=== PATIENT | female | born 1975 ===

== ENCOUNTER 2016-08-02 09:40 | Emergency (ER) | payer BC ==
[~2016-08-02] VITALS: Ht 170.2 cm; Wt 80.0 kg
--- OUTSIDE RECORDS SUMMARY | 2016-08-02 09:45 | XMS REPORT | Summary of Care ---
Author Author [facility] Organization [facility] Address [address] [place] [address] Phone Care Team Providers Care Sanitation Lead Name Role Phone Waleska Hill M.D. Unavailable Unavailable Walseka Hill Unavailable Unavailable Unavailable Unavailable Functional Status Name Dates Details Functional status health issues are not documented Status: Name Dates Details Cognitive status health issues are not documented Status: Problems Name Dates Details Visit for screening (V82.9, Z13.9) Status: Active Migraine headache (346.90, G43.909) Status: Active Fatigue (780.79, R53.83) Status: Active Edema (782.3, R60.9) Status: Active Lumbar sprain, initial encounter (847.2, S33.5XXA) Status: Active Hypercholesterolemia (272.0, E78.00) Status: Active Hypokalemia (276.8, E87.6) Status: Active Acute frontal sinusitis (461.1, J01.10) Status: Active Allergic rhinitis (477.9, J30.9) Status: Active Dysmenorrhea (625.3, N94.6) Status: Active Irregular bleeding (626.4, N92.6) Status: Active Preop examination (V72.84, Z01.818) Status: Active Low back pain, episodic (724.2, M54.5) Status: Active Cyst, ovarian (620.2, N83.209) Status: Active Status post endometrial ablation (V45.89, Z98.890) Status: Active Wellness examination (V70.0, Z00.00) Status: Active Non smoker (V49.89, Z78.9) Status: Active Herpes zoster (053.9, B02.9) Status: Active Neuralgic pain (729.2, M79.2) Status: Active Abdominal pain, RLQ (right lower quadrant) (789.03, R10.31) Status: Active Fibrocystic breast disease (FCBD) (610.1, N60.19) Status: Active Medications Name Dates Details Multi-Vitamin TABS Refills: 0 Active Ibuprofen 200 MG Oral Capsule TAKE CAPSULE PRN Refills: 0 Hill M.D., Waleska Start 22-Sep-2011 Active Vitamin C 1000 MG Oral Tablet TAKE 1 TABLET DAILY. Refills: 0 Hill M.D., [place] Start 25-Jul-2015 Active Atorvastatin Calcium 10 MG Oral Tablet TAKE 1 TABLET DAILY. Quantity: 90 Refills: 3 Hill M.D., [place] Start 25-Jul-2015 Active Vitamin D 1000 UNIT Oral Tablet Refills: 0 Start 15-Aug-2015 Active Acetaminophen-Codeine #3 300-30 MG Oral Tablet TAKE 1 TABLET 3 TIMES DAILY NEEDED FOR PAIN. Refills: 0 Hill M.D., [place] Start 13-Apr-2016 Active Ibuprofen 800 MG Oral Tablet TAKE 1 TABLET EVERY 8 HOURS WITH FOOD NEEDED. Quantity: 30 Refills: 0 Hill M.D., [place] Start 13-Apr-2016 Active Gabapentin 300 MG Oral Capsule TAKE TWO CAPSULES BY MOUTH THREE TIMES A DAY Quantity: 180 Refills: 0 Hill M.D., [place] Start 13-Apr-2016 Active Allergies and Adverse Reactions Name Dates Details Bactrim TABS (Allergy) Reaction: Hives (Severe) Status: Active Levaquin TABS (Allergy) Reaction: Nausea Status: Active Past Medical History Name Dates Details History of abdominal pain (V13.89, Z87.898) Status: Resolved History of acute bronchitis (V12.69, Z87.09) Status: Resolved History of acute sinusitis (V12.69, Z87.09) Status: Resolved History of acute sinusitis (V12.69, Z87.09) Status: Resolved History of allergic rhinitis (V12.69, Z87.09) Status: Resolved History of breast lump (V13.89, Z87.898) Status: Resolved History of bronchitis (V12.69, Z87.09) Status: Resolved History of chest pain (V13.89, Z87.898) Status: Resolved History of Chills (780.64, R68.83) Status: Resolved History of chronic sinusitis (V12.69, Z87.09) Status: Resolved History of Cough (786.2, R05) Status: Resolved History of dizziness (V13.89, Z87.898) Status: Resolved History of Dysuria (788.1, R30.0) Status: Resolved History of Eye pain (379.91, H57.10) Status: Resolved History of fever (V13.89, Z87.898) Status: Resolved History of Flu vaccine need (V04.81, Z23) Status: Resolved History of head injury (V15.59, Z87.828) Status: Resolved History of Leg pain (729.5, M79.606) Status: Resolved History of Leukorrhea, vaginal, noninfectious (623.5, N89.8) Status: Resolved History of migraine headaches (V12.49, Z86.69) Status: Resolved History of Solitary thyroid nodule (241.0, E04.1) Status: Resolved History of Sore throat (462, J02.9) Status: Resolved History of syncope (V15.89, Z87.898) Status: Resolved History of vaginal discharge (V13.29, Z87.42) Status: Resolved Procedures Procedure Dates Details History of Sinus Surgery History of Tubal Ligation History of Extensive Ablation Of Vaginal Lesion(S) History of Diagnostic Esophagogastroduodenoscopy History of Dilation And Curettage History of Hysteroscopy With Endometrial Ablation History of Breast Surgery Lumpectomy Completed: 24-Jul-2009 History of Breast Surgery Reduction Procedure History of Thyroid Surgery Thyroid Lobectomy Left Lobe Completed: 2010 History of Biopsy Breast Open Completed: 25-May-2012 History of Breast Surgery Excision Of Breast Single Lesion Completed: May-2012 History of Oophorectomy - Unilateral (Removal Of One Ovary) CBC w/ Auto Diff 7150 Ordered: 15-May-2016 BASIC METABOLIC PROFILE 1210 Ordered: 15-May-2016 MAMMOGRAM-DIAGNOSTIC BILATERAL FOR BREAST CANCER OR FOLLOW-UP Ordered: 2015 ULTRASOUND BREAST BILATERAL Ordered: 12-Jun-2016 Immunization Name Dates Details Tetanus-Diphtheria Toxoids Td 2-2 LF/0.5ML Intramuscular Suspension on: 2000 Tdap (Adacel) on: 18-Jun-2011 Influenza on: 15-Jun-2013 Fluzone Quadrivalent 0.5 ML Intramuscular Suspension #1 Lot #: [id number] on: 10-May-2014 PPD Lot #: [id number] on: 05-Mar-2015 Fluzone Quadrivalent 0.5 ML Intramuscular Suspension Prefilled Syringe Lot #: [id number] on: 09-May-2015 Family History Name Dates Details Family history of Venous Thrombosis Of The Deep Vessels Of The Distal Lower Extremity Comments: Family History Status: Active Family history of Breast Cancer (V16.3) Comments: Family History Status: Active Family history of CAD (coronary artery disease) (414.00, I25.10) Comments: Family History Status: Active Name Dates Details Family history of Prostate Cancer (V16.42) Status: Active Name Dates Details Family history of Type 2 Diabetes Mellitus Status: Active Family history of Hemochromatosis Status: Active Family history of cardiac disorder (V17.49, Z82.49) Status: Active Family history of hypertension (V17.49, Z82.49) Status: Active Name Dates Details Family history of Angiomyosarcoma Of The Breast (V16.3) Status: Active Social History Name Dates Details - Status: Name Dates Details Smoker. current status unknown Unknown if ever smoked Vital Signs Date Test Result Details No Known Vitals to report Results Date Description Value Details Results not documented Plan of Care Name Dates Details Planned Observations Planned Goals not documented Planned Encounters Appointment; Provider: Waleska Hill M.D. On 28-Jul-2016 09:30 Appointment; Provider: Momo Smith On 23-Jul-2016 16:00 Appointment; Provider: [facility] On 21-Jul-2016 15:00 Appointment; Provider: [facility] On 21-Jul-2016 14:40 Appointment; Provider: Jessica Milan M.D. On 01-Jul-2016 09:30 Appointment; Provider: Jessica Milan M.D. On 29-Jun-2016 09:45 Appointment; Provider: Waleska Hill M.D. On 22-Jun-2016 16:00 Appointment; Provider: Clay Jimenez M.D. On 09-Apr-2016 17:00 Appointment; Provider: [facility] On 04-Jul-2015 15:00 Appointment; Provider: [facility] On 04-Jul-2015 15:00 Appointment; Provider: [facility] On 04-Jul-2015 14:20 Appointment; Provider: Pablo Mark M.D.|Sowmya|Ledy,HELEN|Ledy,HELEN, On 07-Jul-2011 10:00 Appointment; Provider: Pablo Mark M.D.|Sowmya|HELEN Villafana|Ledy,HELEN, On 24-Jul-2009 08:00 Appointment; Provider: Clay Jimenez M.D. On 05-Jun-2008 07:00 Appointment; Provider: Jair Sidhu M.D. On 30-Dec-2007 07:30 Instructions Name Dates Details Instructions not documented Encounters Appointment; Waleska Hill M.D. Encounter Diagnosis: Problem not documented On 15-May-2016 09:00 Appointment; Waleska Hill M.D. Encounter Diagnosis: Problem not documented On 28-Apr-2016 08:15 Appointment; Clay Jimenez M.D. Encounter Diagnosis: Problem not documented On 16-Apr-2016 09:30 Appointment; Waleska Hill M.D. Encounter Diagnosis: Problem not documented On 13-Apr-2016 11:00 Appointment; Clay Jimenez M.D. Encounter Diagnosis: Problem not documented On 09-Apr-2016 14:45 Appointment; Waleska Hill M.D. Encounter Diagnosis: Problem not documented On 09-Apr-2016 10:15 Appointment; Waleska Hill M.D. Encounter Diagnosis: Problem not documented On 07-Apr-2016 09:15 Appointment; Jessica Milan M.D. Encounter Diagnosis: Problem not documented On 26-Mar-2016 13:45 Appointment; Jessica Milan M.D. Encounter Diagnosis: Problem not documented On 16-Mar-2016 14:30 Appointment; Momo Smith Encounter Diagnosis: Problem not documented On 16:00 Appointment; Momo Smith Encounter Diagnosis: Problem not documented On 09:00 Appointment; Waleska Hill M.D. Encounter Diagnosis: Problem not documented On 21-Oct-2015 10:15 Appointment; Waleska Hill M.D. Encounter Diagnosis: Problem not documented On 15-Aug-2015 13:30 Appointment; Waleska Hill M.D. Encounter Diagnosis: Problem not documented On 25-Jul-2015 09:00 Appointment; Momo Smith Encounter Diagnosis: Problem not documented On 12-Jul-2015 11:00 Appointment; Adal Jimenez Encounter Diagnosis: Problem not documented On 09-May-2015 15:00 Appointment; Waleska Hill M.D. Encounter Diagnosis: Problem not documented On 09-Apr-2015 15:15 Appointment; Adal Jimenez Encounter Diagnosis: Problem not documented On 05-Mar-2015 15:25 Appointment; Momo Smith Encounter Diagnosis: Problem not documented On 15:00 Appointment; Momo Smith Encounter Diagnosis: Problem not documented On 12-Jul-2014 15:00 Appointment; Waleska Hill M.D. Encounter Diagnosis: Problem not documented On 03-Jul-2014 09:30"
[2016-08-02] MEDS ORDERED: ONDANSETRON 2 MG/ML (Z0FRAN) 2 ML VIAL IV ONE (10:00)
[2016-08-02] MEDS ORDERED: morphine INJ 4 MG/ML 1 ML SYRINGE IV PRN (10:00)
[2016-08-02] MEDS ORDERED: GI COCKTAIL 55 ML UDC PO ONE (10:00)
[2016-08-02] MEDS ORDERED: SODIUM CHLORIDE FLUSH 3 ML SYR IV PRN (10:00)
[2016-08-02] MEDS ORDERED: SODIUM CHLORIDE FLUSH 10 ML SYR IV PRN (10:00)
[2016-08-02] MEDS ORDERED: MAG HYDROX/AL HYDROX/SIMETH 400-400-40/5 ML (MAG-AL PLUS XS) 30 ML UDC ONE (10:03)
[2016-08-02] MEDS ORDERED: LIDOCAINE 2% VISCOUS 20ML UDC PO ONE (10:04)
[2016-08-02] MEDS ORDERED: BELLADONNA/PHENOBARBITAL ELIXIR (DONNATAL) 10 ML UDC ONE (10:04)
[2016-08-02] MEDS ORDERED: PANTOPRAZOLE IV 40 MG in SODIUM CHLORIDE FLUSH 10 ML IV ONE (10:05)
[2016-08-02] MEDS ORDERED: SODIUM CHLORIDE 50 ML IV ONE (10:10)
[2016-08-02 10:13] LABS: BASOPHILS % (AUTO) 0 % (0-2); EOSINOPHILS # (AUTO) 0.2 10^3uL; EOSINOPHILS % (AUTO) 2 % (0-4); LYMPHOCYTES # (AUTO) 3.1 X10^3; MEAN CORPUSCULAR HEMOGLOBIN 31.2 PG (26.0-34.0); MEAN CORPUSCULAR HGB CONC 34.6 g/dL (31.0-37.0); MEAN CORPUSCULAR VOLUME 90 FL (80-100); MEAN PLATELET VOLUME 10.1 FL (6.0-9.5); MONOCYTES # (AUTO) 0.8 X10^3; MONOCYTES % (AUTO) 11 % (3-11); NEUTROPHILS # (AUTO) 3.3 X10^3; NEUTROPHILS % (AUTO) 45 % (51-67); PLATELET COUNT 259 10^3uL (150-450); WHITE BLOOD COUNT 7.48 10^3uL (4.0-11.0)
[2016-08-02] MEDS ORDERED: NS 50 ML (IVPB) BAG IV ONE (10:15)
[2016-08-02 10:20] LABS: ALBUMIN 4.3 g/dL (3.4-5.0); ALKALINE PHOSPHATASE 102 U/L (38-126); ANION GAP 16.5 MEQ/L (3-15); BUN/CREATININE RATIO 20 (10-20); CREATINE KINASE 57 U/L (30-135); TOTAL PROTEIN 7.2 g/dL (6.4-8.5)
[2016-08-02] MEDS ORDERED: GBPN100C PO (10:39)
[2016-08-02] MEDS ORDERED: ATOR10TA PO (10:39)
[2016-08-02] MEDS ORDERED: METOCLOPRAMIDE 10 MG/2 ML (REGLAN) VIAL IV ONE (10:40)
[2016-08-02] MEDS ORDERED: diphenhydrAMINE 50 MG/ML INJ (BENADRYL) IV ONE (10:40)
[2016-08-02] MEDS ORDERED: HYDROmorphone 1 MG/ML (DILAUDID) SYRINGE IV ONE (10:40)
[2016-08-02] MEDS: MAG HYDROX/AL HYDROX/SIMETH 400-400-40/5 ML (MAG-AL PLUS XS) 30 ML UDC PO ONE ×2 (10:52→10:59)
[2016-08-02] MEDS ORDERED: OMEP40CA36 PO (11:26)
[2016-08-02] MEDS ORDERED: ONDAN4ODT PO (11:26)
[2016-08-02 11:41] VITALS: BP 111/76
== END 2016-08-02 11:37 | disposition home or self-care (01) ==
LOC: ED 09:43
DX: K22.4 Dyskinesia of esophagus (principal); K21.9 Gastro-esophageal reflux disease without esophagitis
CPT/HCPCS: 36415; 80053; 82550; 82553; 84484; 85025; 93005; 96374; 96375; 99285; C9113; J1170; J1200; J2405; J2765; 93010; 99283